=== PATIENT | female | born 1935 | race African-American/Black ===

== ENCOUNTER 2019-03-20 11:02 | Emergency (ER) | payer MEDICARE, MEDICAID ==
[~2019-03-20] VITALS: Ht 160 cm; Wt 59.5 kg
[~2019-03-20 11:02] MED LIST: CLARITIN 1010 MG/TAB PO; COZAAR 25MG25 MG/TAB PO; FLONASEALLERGY NS; GLUCOPHAGE500 MG/TAB PO; HCTZ12.5TAB PO; IRON TABLETS325 MG PO; KLONOPIN 0.5MG0.5 MG PO; KLOR-CON 1010 MEQ PO; MASON NATURAL2000 IU PO; MULTIVITAMIN SEN PO; PRILOSEC 20MG20 MG PO; RITUXAN 50500 MG/50 IV; SYNTHROID0.088 MG/T PO; SYNTHROID0.1 MG/TAB PO; TYLENOL 500MG500 MG PO; VERELAN240 MG PO; VITAMINC1000TA PO; ZETIA 10MG TAB10 MG PO; ZOCOR 10MG10 MG PO
[2019-03-20 11:17] VITALS: BP 115/58; TEMP 97
[2019-03-20 12:25] VITALS: PULSE 71
== END 2019-03-20 12:26 | disposition home or self-care (01) ==
LOC: COL.ER 11:02
DX: K83.8 Other specified diseases of biliary tract (principal); Z85.07 Personal history of malignant neoplasm of pancreas; Z79.51 Long term (current) use of inhaled steroids; Z79.84 Long term (current) use of oral hypoglycemic drugs